=== PATIENT | female | born 1970 | race Caucasian/White ===

== ENCOUNTER 2020-10-28 18:47 | Emergency (ER) | payer BC ==
[~2020-10-28] VITALS: Ht 160 cm; Wt 59.1 kg
[2020-10-28 19:36] VITALS: Ht 160 cm; Wt 59.1 kg
[2020-10-28] MEDS ORDERED: HYDROCODON-ACE1 EAC7 PO (19:55)
[2020-10-28 20:15] VITALS: BP 123/84
== END 2020-10-28 20:15 | disposition home or self-care (01) ==
LOC: D.ER 18:47
DX: S52.501A Unspecified fracture of the lower end of right radius, initial encounter for closed fracture (principal); W19.XXXA Unspecified fall, initial encounter; Y93.9 Activity, unspecified; Y92.9 Unspecified place or not applicable